=== PATIENT | female | born 1955 | race Caucasian/White ===

== ENCOUNTER 2025-03-27 09:52 | Outpatient (AMB) | payer MEDICARE, OTHER, SELFPAY ==
--- OUTSIDE RECORDS SUMMARY | 2023-10-23 04:00 | XMS_ITS ---
Author Organization [facility] [address] Address [address] [place] [address] Care Team Providers Care Park Keeper Name Role Phone JOSE LAGUNAS Unavailable [phone] Encounters Encounter Location Date Provider Diagnosis [facility] [address] [place] [address] 10/23/2023 JOSE LAGUNAS Plan Of Treatment Next Appt Details Provider Name:JOSE LAGUNAS, 06/25/2025 10:15:00 AM, [address], [place], [address], Progress Notes * ANASTACIOBri FORBESDOB:1955 (70 yo F)Acc No.[id number]:10/23/2023 Progress Notes Patient: Bri Genao Provider: Zoey LAGUNAS PA-C :1955 A ge:68 Y S ex:Female Date:10/23/2023 Address:[address] [id number] Care Plan Details* * Electronic signature of MIRANDA LAGUNAS PA-C on 03/27/2025 at 10:56 AM EST Sign off status: Pending * Provider: Zoey LAGUNAS PA-C Date: 0 10/23/2023 Generated for Kaseyi ng/Faxing/eTransmitting on: 1 05/28/2024 10:56 AM EST
--- OUTSIDE RECORDS SUMMARY | 2024-04-28 04:00 | XMS_ITS ---
Author Organization [facility] [address] Address [address] [place] [address] Care Team Providers Care Mastercam Programmer Name Role Phone JOSE LAGUNAS Unavailable [phone] Encounters Encounter Location Date Provider Diagnosis [facility] [address] [place] [address] 04/28/2024 JOSE LAGUNAS Plan Of Treatment Next Appt Details Provider Name:JOSE LAGUNAS, 06/25/2025 10:15:00 AM, [address], [place], [address], Progress Notes * XUANBri ARMSTRONGDOB:1955 (70 yo F)Acc No.[id number]:04/28/2024 Progress Note Patient: Bri Genao Provider: Zoey LAGUNAS PA-C :1955 A ge:69 Y S ex:Female Date:04/28/2024 Address:[address] [id number] Care Plan Details* * Electronic signature of MIRANDA LAGUNAS PA-C on 03/27/2025 at 10:56 AM EST Sign off status: Pending * Provider: Zoey LAGUNAS PA-C Date: 0 04/28/2024 Generated for Bk ng/Faivang/eTransmitting on: 1 05/28/2024 10:56 AM EST
--- OUTSIDE RECORDS SUMMARY | 2024-12-09 05:00 | XMS_ITS ---
Author Organization [facility] [address] Address [address] [place] [address] Care Team Providers Care Kiln Setter Name Role Phone JOSE LAGUNAS Unavailable [phone] Encounters Encounter Location Date Provider Diagnosis [facility] [place] [address] 12/09/2024 JOSE LAGUNAS Plan Of Treatment Next Appt Details Provider Name:JOSE LAGUNAS, 06/25/2025 10:15:00 AM, [address], [place], [address], Progress Notes * ANASTACIOBri FORBESDOB:1955 (70 yo F)Acc No.[id number]:12/09/2024 Progress Notes Patient: Bri Genao Provider: Zoey LAGUNAS PA-C :1955 A ge:69 Y S ex:Female Date:12/09/2024 Address:[address] [id number] Care Plan Details* * Electronic signature of MIRANDA LAGUNAS PA-C on 03/27/2025 at 10:56 AM EST Sign off status: Pending * Provider: Zoey LAGUNAS PA-C Date: 0 12/09/2024 Generated for Bk ng/Faivang/eTransmitting on: 1 05/28/2024 10:56 AM EST
--- NOTE | 2025-03-27 10:11 | HO.SPINEOV ---
Vital Signs 03/27/25 10:23 Height 5 ft 5 in Weight 139 lb BMI 23.1 Intake Visit Reasons: spinal stenosis Intake Note: Ms. Montiel is here today c/o low back pain with stiffness of the feet. MRI done at [facility]. Public Relations Associate Required: No Allergies No Known Allergies Allergy (Verified 03/27/25 10:24) Physical Exam Vital Signs: BMI result Body Mass Index 23.1 Assessment & Plan Assessment & Plan (1) Tethered cord: Code(s): Q06.8 - Other specified congenital malformations of spinal cord Category: Medical Plan Dear Mitra, Thank you for referring Mrs Montiel to our office today. She is a very nice 70-year-old female who has been sent today for evaluation of tethered cord seen on lumbar MRI. She has a complicated urogynecological history, that started with her 1st child , where she has had issues with urinary incontinence. Ultimately over the years she developed a urinary prolapse which was quite significant. She was having tremendous amounts of pelvic pain and urinary issues. A few times when she was bending forward or exerting herself she had episodes of fecal incontinence. She can recall probably 2 or 3 episodes like this. She does not report any loss of sensation in her perineal area. She underwent a surgery to correct her bladder and the prolapse issues and since that time her urinary incontinence has gotten significantly better if not completely fix, and no more episodes of the stool incontinence. She ultimately underwent a lumbar MRI because of the fecal incontinence and this showed spinal cord conus ending at the L4 level possibly consistent with tethered cord syndrome. She had some other mild degenerative changes seen as well. She was sent today for us for an evaluation. The patient states she does have occasional balance issues when she is doing her exercise classes. No tingling or numbness down the legs or in the saddle region. Again her urine and bowel function is back to normal after the urogynecological surgery. No loss of motor strength in the lower extremities reported. PMH: She is otherwise healthy, no major medical problems Social hx: She has not smoke, drink use any recreational drugs Medications: Takes a regular medication Allergies: None Physical exam: Awake alert oriented able to ambulate down the hallways with no instability, strength normal, reflexes slightly brisk on the left side, might have a beat of clonus in the left foot. Toes are both downgoing. No loss of sensation to light touch. Imaging review: Lumbar MRI done at [facility] shows grade 1 spondylolisthesis at L4-5, she has as outlined by the radiology report, low-lying conus, ending at L4. No cord signal change seen in the spinal cord itself. Nothing compressing the spinal cord. Impression: 70-year-old female with an extensive urogynecological history, previous history of urinary incontinence related to those things, who developed a separate issue of 2 or 3 episodes of fecal incontinence. Since her reconstructive surgery of her pelvis, these issues have gone away but she was found to have a low-lying conus ending at L4 possibly consistent with tethered cord syndrome. I reviewed the case with Dr. Castañeda, at this time we do not believe that the tethered cord was connected to the fecal incontinence or the urinary incontinence since the symptoms have gone away after her middle school librarian surgery, but he would like Dr. Tiara Dubois our former colleague at [facility] to see her for a second opinion. We will arrange this and the patient can follow up with him if any surgical intervention is deemed necessary. Thank you for allowing us to care for your patient. The total time spent with this visit with this patient was 45 minutes reviewing history, physical exam, lumbar imaging review, and implementation of treatment plan or further diagnostic testing Reji Castañeda MD,PhD [facility] Coding Level of Care Code New Pt Level 4 (72443) Diagnoses Tethered cord Q06.8
[2025-03-27 10:23] VITALS: BMI 23.1
--- OUTSIDE RECORDS SUMMARY | 2025-03-27 10:56 | XMS_ITS | Patient Health Record ---
Author Organization [facility] Address [address] [place] [address] Care Team Providers Care Watershed Manager Name Role Phone Shahriar BROWN, Bhavna Primary Care Provider Unavailabl e Black, Ruby Unavailable [phone] Reason For Referral No Information Problems Problem Type SNOMED Code ICD Code Onset Dates Problem Status W/U Status Risk Notes Problem Hallux valgus (433606056) Hallux Valgus (735.0) Active confirmed Problem Hammer toe (834560132) Hammer toe (735.4) Active confirmed Plan Of Treatment Pending Test Test Name Order Date X ray : Foot, left 3V 03/09/2011 Insurance Providers Payer Name Payer Address Payer Phone Subscriber Number Group Number Insured Name Patient Relationship to Insured Coverage Start Date Coverage End Date [facility] [address] [place] [phone] [id number] Bri Flower Self - patient is the insured Medical (General) History Medical History History ICD Code chicken pox measles mumps Surgical History Surgery Date(Month/Year) breast biopsy tonsillectomy tubal ligation
--- OUTSIDE RECORDS SUMMARY | 2025-03-27 10:56 | XMS_ITS | Patient Health Record ---
Author Organization [facility] [address] Address [address] [place] [address] Care Team Providers Care Brickmason Helper Name Role Phone JOSE LAGUNAS Unavailable [phone] Allergies No Known Allergies Results Component Value Reference Range Flag Notes CBC WITH AUTO DIFFERENTIAL Reviewed date:04/28/2024 10:02:38 AM Interpretation: Performing Lab: Notes/Report: WBC 5.0 4.8-10.8 K/mcL RBC 4.70 3.80-4.80 M/mcL Hemoglobin 14.0 11.5-16.0 g/dL Hematocrit 44.1 35.0-47.0 % MCV 93.0 79.0-98.0 FL MCH 29.5 27.0-32.0 pcg MCHC 31.7 32.0-37.0 g/dL L RDW 12.4 11.0-15.0 % Platelets 293 130-400 K/mcL MPV 9.9 7.0-11.0 FL NRBC 0.0 <1.0 % NRBC Absolute 0.00 <0.10 K/mcL Neutrophils Relative 52.2 Lymphocytes Relative 33.4 Monocytes Relative 10.6 Eosinophils Relative 2.8 Basophils Relative 0.8 Immature Granulocytes Relative 0.2 Neutrophils Absolute 2.61 1.50-7.00 K/mcL Lymphocytes Absolute 1.67 1.00-5.00 K/mcL Monocytes Absolute 0.53 0.20-1.00 K/mcL Eosinophils Absolute 0.14 0.00-0.50 K/mcL Basophils Absolute 0.04 0.00-0.20 K/mcL Immature Granulocytes Absolute 0.01 0.00-0.03 K/mcL LIPID PANEL WITH REFLEX TO D IRECT LDL Reviewed date:04/28/2024 10:02:12 AM Interpretation: Performing Lab: Notes/Report: Cholesterol 205 0-200 mg/dL H Triglycerides 78 0-150 mg/dL HDL 62 >=40 mg/dL LDL Calculated 127 0-100 mg/dL H VLDL Cholesterol Dwight 15.6 Non HDL Chol. (LDL+VLDL) 143 <145 mg/dL Chol/HDL Ratio 3.3 0.0-4.4 VITAMIN D 25 HYDROXY Reviewed date:04/28/2024 10:02:38 AM Interpretation: Performing Lab: Notes/Report: Vit D, 25-Hydroxy 62.2 30.0-80.0 ng/mL COMPREHENSIVE METABOLIC PANE L Reviewed date:04/28/2024 10:02:38 AM Interpretation: Performing Lab: Notes/Report: Sodium 139 133-145 mmol/L Potassium 4.2 3.5-5.5 mmol/L Chloride 105 96-110 mmol/L CO2 27 21-32 mmol/L Anion Gap 7 3-11 Glucose 80 70-100 mg/dL BUN 22 5-25 mg/dL Creatinine 0.99 0.50-1.10 mg/dL eGFR 63 >=60 mL/min/1.73m2 Calculation based on the Chronic Kidney Disease Epidemiology Collaboration (CKD-EPI) equation refit without adjustment for race. BUN/Creatinine Ratio 22.2 Calcium 8.9 8.5-10.5 mg/dL AST (SGOT) 20 10-42 unit/L ALT (SGPT) 24 10-60 unit/L Alkaline Phosphatase 70 42-121 unit/L Total Protein 6.9 6.0-8.0 g/dL Albumin 3.9 3.2-5.0 g/dL Total Bilirubin 0.5 0.0-1.4 mg/dL URINALYSIS MICROSCOPIC ONLY Reviewed date:04/28/2024 10:02:38 AM Interpretation: Performing Lab: Notes/Report: RBC, Urine 3.1 0-4 /HPF WBC, Urine 0.2 0-4 /HPF Squamous Epithelial, Urine 7 0-60 /LPF Bacteria, Urine Negative Negative /HPF Hyaline Casts, Urine 0.0 0-3 /LPF THYROID STIMULATING HORMONE WITH REFLEX TO FREE T4 AND FREE T3 Reviewed date:04/28/2024 10:02:38 AM Interpretation: Performing Lab: Notes/Report: TSH 2.52 0.40-4.00 mcIU/mL HEMOGLOBIN A1C Reviewed date:04/28/2024 01:43:28 PM Interpretation: Performing Lab: Notes/Report: Hemoglobin A1C 5.4 <6.5 % Mean Bld Glu Estim. 108 VITAMIN B12 Reviewed date:04/28/2024 10:02:38 AM Interpretation: Performing Lab: Notes/Report: Vitamin B-12 498 250-900 pcg/mL BD BONE DENSITY DXA AXIAL SK LESLIETON Reviewed date:11/17/2024 01:43:56 PM Interpretation: Performing Lab: Notes/Report: Note See Note [facility], a member of [employer] Patient Name: BRI FLOWER Date of : 1955 Reason for Exam: screening for osteoporosis Exam Date: 11/14/2024 [id number] EST Report Status: Final Ordering Provider: JOSE LAGUNAS PCP: MITCHELL ROBERTS BONE DENSITY SCAN (DEXA): FINDINGS: Lumbar Spine T-score is -2.4. (SD relative to 20-29 y/o adult) Z-score is -0.5. (SD relative to age matched peers) This is considered osteopenia by WHO criteria. Left Hip T-score is -2.4. Z-score is -0.7. This is considered osteopenia by WHO criteria. Comparison exam(s): None. IMPRESSION: Osteopenia by WHO criteria. This patient has a 20% risk of major osteoporotic fracture and a 4.3% risk of hip fracture over the next 10 years. (World Health Organization Fracture Risk Assessment) [facility] Department of Internal Medicine recommends using National Osteoporosis Foundation (NOF) guidelines in treatment decisions related to osteoporosis. NOF guidelines suggest considering treatment for postmenopausal women and men aged 50 or older presenting with the following: History of hip or vertebral fracture. T-score = -2.5 (DXA) at the femoral neck, total hip, or spine, after appropriate evaluation to exclude secondary causes. Low bone mass (T-sco re between -1.0 and -2.5 at the femoral neck or spine) AND a 10-year probability of a hip fracture = 3% OR a 10-year probability of a major osteoporosis-related fracture = 20% based on the [place]-adapted WHO algorithm Please note that all treatment decisions require clinical judgment and consideration of individual patient factors, including patient preferences, co-morbidities, previous drug use, risk factors not captured in the FRAX model (e.g., frailty, falls, vitamin D deficiency, increased bone turnover, interval significant decline in bone density) and possible under- or over-estimation of fracture risk by FRAX. Optional alternative screening schedule based on tejas Henderson., [facility] April 27, 2011 for patients with osteopenia (based on hip BMD T-score) is as follows: * advanced osteopeni a (T scores -2.00 to -2.49), BMD testing every year * moderate osteopeni a (T scores -1.50 to -1.99), BMD testing every 5 years mild osteopenia or normal BMD (T scores -1.50 and higher), BMD testing every 15 years -------- FINAL REPOR T -------- Dictated By: Aleta Kwan Dictated Date: 11/17/2024 09:55 ET Assigned Physician: Aleta Kwan Reviewed and Electronically Signed By: Aleta Kwan Signed Date: 025 09:56 ET Workstation ID: [id number] Transcribed By: Self Edit Transcribed Date: 11/17/2024 09:55 ET MR LUMBAR SPINE WO CONTRAST Reviewed date:2025 01:29:08 PM Interpretation: Performing Lab: Notes/Report: Note See Note [facility], a member of [employer] Patient Name: BRI FLOWER Date of : 1955 Reason for Exam: incontinece Exam Date: 02/10/2025 [id number] EST Report Status: Final Ordering Provider: JOSE LAGUNAS PCP: MITCHELL ROBERTS INDICATION: Stool incontinence COMPARISON: None TECHNIQUE: Multiplan ar, multisequence MRI was performed of the lumbar spine without IV contrast. FINDINGS: Study assumes 5 lumb ar type vertebral bodies. Stepwise grade 1 anterolisthesis of L3 on L4 and L4 on L5. Conus terminates at L4. Bone marrow and cord signal is unremarkable. Disc desiccation at L3-L4 and L4-L5. Small multilevel anterior marginal osteophytes. The spinal canal is widened and patulous in appearance which may represent dural ectasia. Specific findings are seen at the following levels: T12-L1:No significan t spinal canal stenosis or neural foraminal narrowing L1-L2:No significant spinal canal stenosis or neural foraminal narrowing L2-L3:Mild disc bulg e with facet arthropathy without significant spinal canal stenosis or neural foraminal narrowing L3-L4:Uncovering of the disc with ligamentum flavum infolding and facet arthropathy which effaces the ventral thecal sac and results in mild spinal canal stenosis. No neural foraminal narrowing. L4-L5:Uncovering of the disc with ligamentum flavum infolding and facet arthropathy with fluid in both facet joints which results in moderate spinal canal stenosis and mild bilateral neural foraminal narrowing L5-S1:No significant spinal canal stenosis or neural foraminal narrowing. Facet arthropathy. Miscellaneous: Visualized SI joints, paraspinal muscles and retroperitoneum are unremarkable. IMPRESSION: Constellation of findings suspicious for tethered cord syndrome -------- FINAL REPOR T -------- Dictated By: Kavitha Romero Dictated Date: 2025 03:11 ET Assigned Physician: Kavitha Romero Reviewed and Electronically Signed By: Kavitha Romero Signed Date: 025 10:05 ET Workstation ID: [id number] Transcribed By: Self Edit Transcribed Date: 2025 03:19 ET Reason For Referral Reason Evaluate & Treat Diagnosis 1 Hip pain (M25.559) Diagnosis 2 Trochanteric bursiti s, unspecified hip (M70.60) Referral Organization [facility] Referring Provider First Name JOSE Referring Provider Last Name BEBO Referring Provider Speciality Internal edicine Referred Provider Specialty Orthopedic S urgery General Notes Yeimy Morris 0 01/01/2025 12:51:27 PM > Referral to [facility] and carmela strong , f. [phone] Referral Priority Routine Reason evaluate and treat, tethered cord syndrome Diagnosis 1 Other specified dise ases of spinal cord (G95.89) Referral Organization [facility] Referring Provider First Name JOSE Referring Provider Last Name BEBO Referring Provider Speciality Internal edicine Referred Provider Specialty Neurological Surgery Clinical Notes Rosalva Maciel 01:34:13 PM > referral sent to Dr. Irizarry, p)[phone], f)[phone] Danasia 02/20/2025 01:48:20 PM EST > pt called and lvm requesting referral be sent to Dr. Castañeda in [place].Diane Victoria 02/23/2025 01:58:19 PM EST > faxed referral and attachments to Dr. Castañeda [facility] neuro, p: [phone], f: [phone], Craig Bee 03/10/2025 01:34:24 PM EST > resent twice today, Craig Bee 03/19/2025 10:53:29 AM EST > Pt called in and gave me different fax [phone]. Refaxed twice Referral Priority Routine Medications Medication SIG (Take, Route, Frequency, Duration) Notes Start Date End Date Status Calcium + D 500-1000-40 MG-UNT-MCG Tablet Chewable as directed Orally Active Immunizations Vaccine Route Administration Date Status Comme nts COVID 19 VACCINE Unknown 01/25/2024 Administered Social History Tobacco Use: Social History Observation Description Date Details (start date - stop date) Never Smoker NA - NA Social History Tobacco Use: Social Info Question Answer Notes Tobacco Use/Smoking Are you a nonsmoker Section Notes: current smoker 1 pack a day for 20 years hx of 1 pack a day for 20 ye ars hx of 1 pack a day for 20 ye ars Tob: 1 PPD x 20 year ETOH: No social hx of 1 pack a day for 20 years Tob: 1 PPD x 20 year ETOH: No social hx of 1 pack a day for 20 years Tob: 1 PPD x 20 year ETOH: No social hx of 1 pack a day for 20 years hx of 1 pack a day for 20 ye ars Tob: 1 PPD x 20 year ETOH: No social hx of 1 pack a day for 20 years Tob: 1 PPD x 20 year ETOH: No social hx of 1 pack a day for 20 years current smoker 1 pack a day for 20 years Problems Problem Type SNOMED Code ICD Code Onset Dates Problem Status W/U Status Risk Notes Problem Vitamin B>12< deficiency anaemia (53185187) Vitamin B12 deficiency anemia, unspecified (D51.9) Active confirmed Problem Vitamin D deficiency (64285689) Vitamin D deficiency, unspecified (E55.9) Active confirmed Problem Hyperlipidemia (25593957) Hyperlipidemia, unspecified (E78.5) Active confirmed Problem Spinal cord disorder (49757504) Other specified diseases of spinal cord (G95.89) Active confirmed Problem Spinal cord disorder (16965772) Disease of spinal cord, unspecified (G95.9) Active confirmed Problem Chronic kidney disease stage 2 (059439845) Chronic kidney disease, stage 2 (mild) (N18.2) Active confirmed Problem Cystocele (672984354) Cystocele, unspecified (N81.10) Active confirmed Problem Midline cystocele (557932466) Cystocele, midline (N81.11) Active confirmed Problem Adult health examination (452240991) Encounter for general adult medical examination without abnormal findings (Z00.00) Active confirmed Problem Colon cancer screening (227227487) Colon cancer screening (Z12.11) Active confirmed Problem Hyperlipidaemia (41766705) Hyperlipidemia, unspecified hyperlipidemia type (E78.5) Active confirmed Problem Acquired hypothyroidism (962809962) Acquired hypothyroidism (E03.9) Active confirmed Problem Hypothyroidism (69820457) Hypothyroidism, unspecified type (E03.9) Active confirmed Problem Arthritis (0115536) Arthritis (M19.90) Active confirmed Problem Vitamin D deficiency (34276060) Vitamin D deficiency (E55.9) Active confirmed Problem Type II diabetes mellitus without complication (764616987) Type 2 diabetes mellitus without complication, unspecified whether auto painter helper insulin use (E11.9) Active confirmed Problem Incontinence (12267673) Incontinence in female (R32) Active confirmed Problem Incontinence of feces (34624135) Incontinence of feces, unspecified fecal incontinence type (R15.9) Active confirmed Problem Midline cystocele (345568878) Female bladder prolapse (N81.10) Active confirmed Vital Signs Heart Rate 74 /min 03/03/2025 Oximetry 98 % 03/03/2025 Blood pressure diastolic 70 mm Hg 03/03/2025 Height 65 in 03/03/2025 Blood pressure systolic 120 mm Hg 03/03/2025 Weight 143.2 lbs 03/03/2025 BMI 23.83 kg/m2 03/03/2025 Encounters Encounter Location Date Provider Diagnosis [facility] [address] [place] [address] 06/10/2024 JOSE LAGUNAS Hyperlipidemia, unspecified E78.5 ; Medicare annual wellness visit, subsequent Z00.00 ; Vitamin D deficiency E55.9 ; Arthritis M19.90 ; Osteopenia of lumbar spine M85.88 ; Depression screen Z13.31 ; Encounter for screening for other disorder Z13.89 ; Cystocele, midline N81.11 and Advance care planning Z71.89 [facility] [address] [place] [address] 01/01/2025 JOSE BEBO Hyperlipidemia, unspecified E78.5 ; Incontinence of feces, unspecified fecal incontinence type R15.9 ; Osteopenia of lumbar spine M85.88 ; Cystocele, midline N81.11 and Encounter for examination of blood pressure without abnormal findings Z01.30 [facility] [address] [place] [address] 03/03/2025 JOSE LAGUNAS Hyperlipidemia, unspecified E78.5 ; Disease of spinal cord, unspecified G95.9 ; Osteopenia of lumbar spine M85.88 ; Cystocele, midline N81.11 and Encounter for examination of blood pressure without abnormal findings Z01.[address] [address] 11/05/2024 JOSE LAGUNAS Screening for osteoporosis Z13.[address] [facility] [address] [address] 11/26/2024 JOSE BEBO [facility] [address] 2025 JOSE LAGUNAS Assessments Encounter Date Diagnosis (ICD Code) Assessment Notes Treatment Notes Treatment Clinical Notes Section Notes 06/10/2024 Hyperlipidemia, unspecified (ICD-10 - E78.5) Bri is a 69 year old female patient with a past medical history of osteopenia and vitamin D deficiency presenting for a Medicare wellness visit. # Hyperlipidemia: Lipid panel reveals mild hyperlipidemia with LDL 127, down from 142. She continues to focus on nutrition and regular exercise. Encouraged fish oil supplementation. # Arthritis, Osteopenia, and Vitamin D deficiency: DEXA scan from 07/2022 does show osteopenia. She has begun taking calcium and vitamin D supplementation which will be continued. Vitamin D level is 43 today. She does have arthritis which mainly affects her MCP and knee joints bilaterally. Encouraged Ibuprofen use PRN for flare ups, discussed the significance of not using these daily but only for flare ups. Patient is in agreement and is also working on supportive measures including ice and stretching. # L hip pain. Suspect tronchanteric bursiti. Meloxicam 7.5 mg po daily x 1 month. Consider refer to ortho for possible corticosteroid injection. # Cystocele: Followed by Urology. Consider referral to Pelvic PT. # Screening: UTD. June 2023 Colonoscopy # Vaccines: Given Rx for RSV/Pnuemonia vaccines. All other vaccines UTD Patient seen and examined. Comprehensive discussion was done on the following. 1. Nutrition: It is important to follow a healthy diet based on lots of vegetables and legumes and good fat. Avoid processed food and processed carbohydrates. Learn to prepare your own meals. Learn to read labels and avoid high fructose corn syrup, processed chemicals added to increase shelf life and preprepared meals. Avoid fast foods. Learn to eat slowly and plan meals for a week. Try to count calories and be mindful off daily calorie intake. Get into the habit of keeping an eye on your weight by using an appropriate scale. Learn to log exercise and discussed fitness Apps like Lumenz which can help keep log off calories taken versus calories burned. Local food should be preferred. Discussed Dirty Dozen Versus Clean Fifteen. Discussed healthy supplements like fish oil, Tumeric, Curcumin, Melatonin, Resveratrol, Probiotics, Vitamin-D, Alpha-Lipoic acid, Vitamin-D and coconut oil. 2. It is important to exercise regularly. Is a good habit to walk at least 30-45 minutes a day. Gentle weightlifting with standard precautions to protect the back. Finding activity like cycling or hiking and get into the habit of engaging in it. Stretching before and after the exercises important. It is also important to contact me if there are any problems like shortness of breath, chest pain, back pain and joint or muscle pain associated with the exercise. 3. Discussed age appropriate screening guidelines. Colonoscopy needs to start at age 50 with stool for occult blood as appropriate. There is a new test that can test for genetic abnormalities in the stool sample. This would not replace a colonoscopy but could be used as a screening tool for patients who do not want a colonoscopy. We discussed the importance of early detection of colon cancer. 4. Discussed current guidelines with respect to breast examination, mammogram and pap smear for early detection of breast and cervical cancer. Patient advised to follow up with these appointments. 5. Discussed safe driving and no use of smart phone while driving 6. Age-appropriate immunizations were discussed. A tetanus booster is needed every 10 years. Flu vaccine is recommended every year just before the start of the flu season. Shingles vaccine is recommended after age 50 but not all insurances cover it.Pneumonia vaccine is given after age 65 unless there are certain comorbidities for which it is started earlier. 7. Diagnostic labs were discussed. These could include CBC CMP and lipids with fasting blood glucose and insulin levels. Vitamin D and hemoglobin A1c testing might be appropriate. Follow up appointment in 6 months. WIll re-check lipid panel to trend values. Patient advised to call the office sooner if any questions arise. 06/10/2024 Medicare annual wellness visit, subsequent (ICD-10 - Z00.00) Bri is a 69 year old female patient with a past medical history of osteopenia and vitamin D deficiency presenting for a Medicare wellness visit. # Hyperlipidemia: Lipid panel reveals mild hyperlipidemia with LDL 127, down from 142. She continues to focus on nutrition and regular exercise. Encouraged fish oil supplementation. # Arthritis, Osteopenia, and Vitamin D deficiency: DEXA scan from 07/2022 does show osteopenia. She has begun taking calcium and vitamin D supplementation which will be continued. Vitamin D level is 43 today. She does have arthritis which mainly affects her MCP and knee joints bilaterally. Encouraged Ibuprofen use PRN for flare ups, discussed the significance of not using these daily but only for flare ups. Patient is in agreement and is also working on supportive measures including ice and stretching. # L hip pain. Suspect tronchanteric bursiti. Meloxicam 7.5 mg po daily x 1 month. Consider refer to ortho for possible corticosteroid injection. # Cystocele: Followed by Urology. Consider referral to Pelvic PT. # Screening: UTD. June 2023 Colonoscopy # Vaccines: Given Rx for RSV/Pnuemonia vaccines. All other vaccines UTD Patient seen and examined. Comprehensive discussion was done on the following. 1. Nutrition: It is important to follow a healthy diet based on lots of vegetables and legumes and good fat. Avoid processed food and processed carbohydrates. Learn to prepare your own meals. Learn to read labels and avoid high fructose corn syrup, processed chemicals added to increase shelf life and preprepared meals. Avoid fast foods. Learn to eat slowly and plan meals for a week. Try to count calories and be mindful off daily calorie intake. Get into the habit of keeping an eye on your weight by using an appropriate scale. Learn to log exercise and discussed fitness Apps like Lumenz which can help keep log off calories taken versus calories burned. Local food should be preferred. Discussed Dirty Dozen Versus Clean Fifteen. Discussed healthy supplements like fish oil, Tumeric, Curcumin, Melatonin, Resveratrol, Probiotics, Vitamin-D, Alpha-Lipoic acid, Vitamin-D and coconut oil. 2. It is important to exercise regularly. Is a good habit to walk at least 30-45 minutes a day. Gentle weightlifting with standard precautions to protect the back. Finding activity like cycling or hiking and get into the habit of engaging in it. Stretching before and after the exercises important. It is also important to contact me if there are any problems like shortness of breath, chest pain, back pain and joint or muscle pain associated with the exercise. 3. Discussed age appropriate screening guidelines. Colonoscopy needs to start at age 50 with stool for occult blood as appropriate. There is a new test that can test for genetic abnormalities in the stool sample. This would not replace a colonoscopy but could be used as a screening tool for patients who do not want a colonoscopy. We discussed the importance of early detection of colon cancer. 4. Discussed current guidelines with respect to breast examination, mammogram and pap smear for early detection of breast and cervical cancer. Patient advised to follow up with these appointments. 5. Discussed safe driving and no use of smart phone while driving 6. Age-appropriate immunizations were discussed. A tetanus booster is needed every 10 years. Flu vaccine is recommended every year just before the start of the flu season. Shingles vaccine is recommended after age 50 but not all insurances cover it.Pneumonia vaccine is given after age 65 unless there are certain comorbidities for which it is started earlier. 7. Diagnostic labs were discussed. These could include CBC CMP and lipids with fasting blood glucose and insulin levels. Vitamin D and hemoglobin A1c testing might be appropriate. Follow up appointment in 6 months. WIll re-check lipid panel to trend values. Patient advised to call the office sooner if any questions arise. 11/05/2024 Screening for osteoporosis (ICD-10 - Z13.820) 01/01/2025 Hyperlipidemia, unspecified (ICD-10 - E78.5) Bri is a 69 year old female patient with a past medical history of osteopenia and vitamin D deficiency p # STool incontinence. Not all the time... MRI of lumbar spine w/o contrast. # Hyperlipidemia: Lipid panel reveals mild hyperlipidemia with LDL 127, down from 142. She continues to focus on nutrition and regular exercise. Encouraged fish oil supplementation. # Arthritis, Osteopenia, and Vitamin D deficiency: DEXA scan from 07/2022 does show osteopenia. She has begun taking calcium and vitamin D supplementation which will be continued. Vitamin D level is 43 today. She does have arthritis which mainly affects her MCP and knee joints bilaterally. Encouraged Ibuprofen use PRN for flare ups, discussed the significance of not using these daily but only for flare ups. Patient is in agreement and is also working on supportive measures including ice and stretching. # L hip pain. Suspect tronchanteric bursiti. Meloxicam 7.5 mg po daily x 1 month with no improvement. Refer to ortho # Cystocele: Undergoing urogynecology [facility] with cystocele repair Feb 2025 # Screening: UTD. June 2023 Colonoscopy Case discussed with collaborating physician Lucy Roberts who reviewed the assessment and plan. Chart, medications, labs, vital signs reviewed. Dictation was accomplished with the use of [employer] voice recognition software, prone to medical misidentifications and grammatical errors. This is unintentional and the practitioner does try to identify and correct these, but some could still be present. Please do not hesitate to contact practitioner for clarification. All questions answered to patients satisfaction. Patient verbalized understanding of diagnosis and treatments explained. To call sooner prior to next visit it any questions/concerns arise. 03/03/2025 Hyperlipidemia, unspecified (ICD-10 - E78.5) Bri is a 69 year old female patient with a past medical history of osteopenia and vitamin D deficiency p # Tethered lumbar cord syndrome. This was noted on MRI done in January 2025. Patient has referral placed to neurosurgery # Hyperlipidemia: Lipid panel reveals mild hyperlipidemia with LDL 127, down from 142. She continues to focus on nutrition and regular exercise. Encouraged fish oil supplementation. # Arthritis, Osteopenia, and Vitamin D deficiency: DEXA scan from 07/2022 does show osteopenia. She has begun taking calcium and vitamin D supplementation which will be continued. Vitamin D level is 43 today. She does have arthritis which mainly affects her MCP and knee joints bilaterally. Encouraged Ibuprofen use PRN for flare ups, discussed the significance of not using these daily but only for flare ups. Patient is in agreement and is also working on supportive measures including ice and stretching. # Cystocele: Undergoing urogynecology [facility] with cystocele repair Feb 2025, 2 weeks postop with good healing. # Screening: UTD. June 2023 Colonoscopy Case discussed with collaborating physician Lucy Roberts who reviewed the assessment and plan. Chart, medications, labs, vital signs reviewed. Dictation was accomplished with the use of [employer] voice recognition software, prone to medical misidentifications and grammatical errors. This is unintentional and the practitioner does try to identify and correct these, but some could still be present. Please do not hesitate to contact practitioner for clarification. All questions answered to patients satisfaction. Patient verbalized understanding of diagnosis and treatments explained. To call sooner prior to next visit it any questions/concerns arise. 03/03/2025 Disease of spinal cord, unspecified (ICD-10 - G95.9) Bri is a 69 year old female patient with a past medical history of osteopenia and vitamin D deficiency p # Tethered lumbar cord syndrome. This was noted on MRI done in January 2025. Patient has referral placed to neurosurgery # Hyperlipidemia: Lipid panel reveals mild hyperlipidemia with LDL 127, down from 142. She continues to focus on nutrition and regular exercise. Encouraged fish oil supplementation. # Arthritis, Osteopenia, and Vitamin D deficiency: DEXA scan from 07/2022 does show osteopenia. She has begun taking calcium and vitamin D supplementation which will be continued. Vitamin D level is 43 today. She does have arthritis which mainly affects her MCP and knee joints bilaterally. Encouraged Ibuprofen use PRN for flare ups, discussed the significance of not using these daily but only for flare ups. Patient is in agreement and is also working on supportive measures including ice and stretching. # Cystocele: Undergoing urogynecology [facility] with cystocele repair Feb 2025, 2 weeks postop with good healing. # Screening: UTD. June 2023 Colonoscopy Case discussed with collaborating physician Lucy Roberts who reviewed the assessment and plan. Chart, medications, labs, vital signs reviewed. Dictation was accomplished with the use of [employer] voice recognition software, prone to medical misidentifications and grammatical errors. This is unintentional and the practitioner does try to identify and correct these, but some could still be present. Please do not hesitate to contact practitioner for clarification. All questions answered to patients satisfaction. Patient verbalized understanding of diagnosis and treatments explained. To call sooner prior to next visit it any questions/concerns arise. 01/01/2025 Incontinence of feces, unspecified fecal incontinence type (ICD-10 - R15.9) Bri is a 69 year old female patient with a past medical history of osteopenia and vitamin D deficiency p # STool incontinence. Not all the time... MRI of lumbar spine w/o contrast. # Hyperlipidemia: Lipid panel reveals mild hyperlipidemia with LDL 127, down from 142. She continues to focus on nutrition and regular exercise. Encouraged fish oil supplementation. # Arthritis, Osteopenia, and Vitamin D deficiency: DEXA scan from 07/2022 does show osteopenia. She has begun taking calcium and vitamin D supplementation which will be continued. Vitamin D level is 43 today. She does have arthritis which mainly affects her MCP and knee joints bilaterally. Encouraged Ibuprofen use PRN for flare ups, discussed the significance of not using these daily but only for flare ups. Patient is in agreement and is also working on supportive measures including ice and stretching. # L hip pain. Suspect tronchanteric bursiti. Meloxicam 7.5 mg po daily x 1 month with no improvement. Refer to ortho # Cystocele: Undergoing urogynecology [facility] with cystocele repair Feb 2025 # Screening: UTD. June 2023 Colonoscopy Case discussed with collaborating physician Lucy Roberts who reviewed the assessment and plan. Chart, medications, labs, vital signs reviewed. Dictation was accomplished with the use of [employer] voice recognition software, prone to medical misidentifications and grammatical errors. This is unintentional and the practitioner does try to identify and correct these, but some could still be present. Please do not hesitate to contact practitioner for clarification. All questions answered to patients satisfaction. Patient verbalized understanding of diagnosis and treatments explained. To call sooner prior to next visit it any questions/concerns arise. 01/01/2025 Osteopenia of lumbar spine (ICD-10 - M85.88) Bri is a 69 year old female patient with a past medical history of osteopenia and vitamin D deficiency p # STool incontinence. Not all the time... MRI of lumbar spine w/o contrast. # Hyperlipidemia: Lipid panel reveals mild hyperlipidemia with LDL 127, down from 142. She continues to focus on nutrition and regular exercise. Encouraged fish oil supplementation. # Arthritis, Osteopenia, and Vitamin D deficiency: DEXA scan from 07/2022 does show osteopenia. She has begun taking calcium and vitamin D supplementation which will be continued. Vitamin D level is 43 today. She does have arthritis which mainly affects her MCP and knee joints bilaterally. Encouraged Ibuprofen use PRN for flare ups, discussed the significance of not using these daily but only for flare ups. Patient is in agreement and is also working on supportive measures including ice and stretching. # L hip pain. Suspect tronchanteric bursiti. Meloxicam 7.5 mg po daily x 1 month with no improvement. Refer to ortho # Cystocele: Undergoing urogynecology [facility] with cystocele repair Feb 2025 # Screening: UTD. June 2023 Colonoscopy Case discussed with collaborating physician Lucy Roberts who reviewed the assessment and plan. Chart, medications, labs, vital signs reviewed. Dictation was accomplished with the use of [employer] voice recognition software, prone to medical misidentifications and grammatical errors. This is unintentional and the practitioner does try to identify and correct these, but some could still be present. Please do not hesitate to contact practitioner for clarification. All questions answered to patients satisfaction. Patient verbalized understanding of diagnosis and treatments explained. To call sooner prior to next visit it any questions/concerns arise. 03/03/2025 Osteopenia of lumbar spine (ICD-10 - M85.88) Bri is a 69 year old female patient with a past medical history of osteopenia and vitamin D deficiency p # Tethered lumbar cord syndrome. This was noted on MRI done in January 2025. Patient has referral placed to neurosurgery # Hyperlipidemia: Lipid panel reveals mild hyperlipidemia with LDL 127, down from 142. She continues to focus on nutrition and regular exercise. Encouraged fish oil supplementation. # Arthritis, Osteopenia, and Vitamin D deficiency: DEXA scan from 07/2022 does show osteopenia. She has begun taking calcium and vitamin D supplementation which will be continued. Vitamin D level is 43 today. She does have arthritis which mainly affects her MCP and knee joints bilaterally. Encouraged Ibuprofen use PRN for flare ups, discussed the significance of not using these daily but only for flare ups. Patient is in agreement and is also working on supportive measures including ice and stretching. # Cystocele: Undergoing urogynecology [facility] with cystocele repair Feb 2025, 2 weeks postop with good healing. # Screening: UTD. June 2023 Colonoscopy Case discussed with collaborating physician Lucy Roberts who reviewed the assessment and plan. Chart, medications, labs, vital signs reviewed. Dictation was accomplished with the use of [employer] voice recognition software, prone to medical misidentifications and grammatical errors. This is unintentional and the practitioner does try to identify and correct these, but some could still be present. Please do not hesitate to contact practitioner for clarification. All questions answered to patients satisfaction. Patient verbalized understanding of diagnosis and treatments explained. To call sooner prior to next visit it any questions/concerns arise. 06/10/2024 Vitamin D deficiency (ICD-10 - E55.9) Bri is a 69 year old female patient with a past medical history of osteopenia and vitamin D deficiency presenting for a Medicare wellness visit. # Hyperlipidemia: Lipid panel reveals mild hyperlipidemia with LDL 127, down from 142. She continues to focus on nutrition and regular exercise. Encouraged fish oil supplementation. # Arthritis, Osteopenia, and Vitamin D deficiency: DEXA scan from 07/2022 does show osteopenia. She has begun taking calcium and vitamin D supplementation which will be continued. Vitamin D level is 43 today. She does have arthritis which mainly affects her MCP and knee joints bilaterally. Encouraged Ibuprofen use PRN for flare ups, discussed the significance of not using these daily but only for flare ups. Patient is in agreement and is also working on supportive measures including ice and stretching. # L hip pain. Suspect tronchanteric bursiti. Meloxicam 7.5 mg po daily x 1 month. Consider refer to ortho for possible corticosteroid injection. # Cystocele: Followed by Urology. Consider referral to Pelvic PT. # Screening: UTD. June 2023 Colonoscopy # Vaccines: Given Rx for RSV/Pnuemonia vaccines. All other vaccines UTD Patient seen and examined. Comprehensive discussion was done on the following. 1. Nutrition: It is important to follow a healthy diet based on lots of vegetables and legumes and good fat. Avoid processed food and processed carbohydrates. Learn to prepare your own meals. Learn to read labels and avoid high fructose corn syrup, processed chemicals added to increase shelf life and preprepared meals. Avoid fast foods. Learn to eat slowly and plan meals for a week. Try to count calories and be mindful off daily calorie intake. Get into the habit of keeping an eye on your weight by using an appropriate scale. Learn to log exercise and discussed fitness Apps like [employer] which can help keep log off calories taken versus calories burned. Local food should be preferred. Discussed Dirty Dozen Versus Clean Fifteen. Discussed healthy supplements like fish oil, Tumeric, Curcumin, Melatonin, Resveratrol, Probiotics, Vitamin-D, Alpha-Lipoic acid, Vitamin-D and coconut oil. 2. It is important to exercise regularly. Is a good habit to walk at least 30-45 minutes a day. Gentle weightlifting with standard precautions to protect the back. Finding activity like cycling or hiking and get into the habit of engaging in it. Stretching before and after the exercises important. It is also important to contact me if there are any problems like shortness of breath, chest pain, back pain and joint or muscle pain associated with the exercise. 3. Discussed age appropriate screening guidelines. Colonoscopy needs to start at age 50 with stool for occult blood as appropriate. There is a new test that can test for genetic abnormalities in the stool sample. This would not replace a colonoscopy but could be used as a screening tool for patients who do not want a colonoscopy. We discussed the importance of early detection of colon cancer. 4. Discussed current guidelines with respect to breast examination, mammogram and pap smear for early detection of breast and cervical cancer. Patient advised to follow up with these appointments. 5. Discussed safe driving and no use of smart phone while driving 6. Age-appropriate immunizations were discussed. A tetanus booster is needed every 10 years. Flu vaccine is recommended every year just before the start of the flu season. Shingles vaccine is recommended after age 50 but not all insurances cover it.Pneumonia vaccine is given after age 65 unless there are certain comorbidities for which it is started earlier. 7. Diagnostic labs were discussed. These could include CBC CMP and lipids with fasting blood glucose and insulin levels. Vitamin D and hemoglobin A1c testing might be appropriate. Follow up appointment in 6 months. WIll re-check lipid panel to trend values. Patient advised to call the office sooner if any questions arise. 06/10/2024 Arthritis (ICD-10 - M19.90) Bri is a 69 year old female patient with a past medical history of osteopenia and vitamin D deficiency presenting for a Medicare wellness visit. # Hyperlipidemia: Lipid panel reveals mild hyperlipidemia with LDL 127, down from 142. She continues to focus on nutrition and regular exercise. Encouraged fish oil supplementation. # Arthritis, Osteopenia, and Vitamin D deficiency: DEXA scan from 07/2022 does show osteopenia. She has begun taking calcium and vitamin D supplementation which will be continued. Vitamin D level is 43 today. She does have arthritis which mainly affects her MCP and knee joints bilaterally. Encouraged Ibuprofen use PRN for flare ups, discussed the significance of not using these daily but only for flare ups. Patient is in agreement and is also working on supportive measures including ice and stretching. # L hip pain. Suspect tronchanteric bursiti. Meloxicam 7.5 mg po daily x 1 month. Consider refer to ortho for possible corticosteroid injection. # Cystocele: Followed by Urology. Consider referral to Pelvic PT. # Screening: UTD. June 2023 Colonoscopy # Vaccines: Given Rx for RSV/Pnuemonia vaccines. All other vaccines UTD Patient seen and examined. Comprehensive discussion was done on the following. 1. Nutrition: It is important to follow a healthy diet based on lots of vegetables and legumes and good fat. Avoid processed food and processed carbohydrates. Learn to prepare your own meals. Learn to read labels and avoid high fructose corn syrup, processed chemicals added to increase shelf life and preprepared meals. Avoid fast foods. Learn to eat slowly and plan meals for a week. Try to count calories and be mindful off daily calorie intake. Get into the habit of keeping an eye on your weight by using an appropriate scale. Learn to log exercise and discussed fitness Apps like [employer] which can help keep log off calories taken versus calories burned. Local food should be preferred. Discussed Dirty Dozen Versus Clean Fifteen. Discussed healthy supplements like fish oil, Tumeric, Curcumin, Melatonin, Resveratrol, Probiotics, Vitamin-D, Alpha-Lipoic acid, Vitamin-D and coconut oil. 2. It is important to exercise regularly. Is a good habit to walk at least 30-45 minutes a day. Gentle weightlifting with standard precautions to protect the back. Finding activity like cycling or hiking and get into the habit of engaging in it. Stretching before and after the exercises important. It is also important to contact me if there are any problems like shortness of breath, chest pain, back pain and joint or muscle pain associated with the exercise. 3. Discussed age appropriate screening guidelines. Colonoscopy needs to start at age 50 with stool for occult blood as appropriate. There is a new test that can test for genetic abnormalities in the stool sample. This would not replace a colonoscopy but could be used as a screening tool for patients who do not want a colonoscopy. We discussed the importance of early detection of colon cancer. 4. Discussed current guidelines with respect to breast examination, mammogram and pap smear for early detection of breast and cervical cancer. Patient advised to follow up with these appointments. 5. Discussed safe driving and no use of smart phone while driving 6. Age-appropriate immunizations were discussed. A tetanus booster is needed every 10 years. Flu vaccine is recommended every year just before the start of the flu season. Shingles vaccine is recommended after age 50 but not all insurances cover it.Pneumonia vaccine is given after age 65 unless there are certain comorbidities for which it is started earlier. 7. Diagnostic labs were discussed. These could include CBC CMP and lipids with fasting blood glucose and insulin levels. Vitamin D and hemoglobin A1c testing might be appropriate. Follow up appointment in 6 months. WIll re-check lipid panel to trend values. Patient advised to call the office sooner if any questions arise. 03/03/2025 Cystocele, midline (ICD-10 - N81.11) Bri is a 69 year old female patient with a past medical history of osteopenia and vitamin D deficiency p # Tethered lumbar cord syndrome. This was noted on MRI done in January 2025. Patient has referral placed to neurosurgery # Hyperlipidemia: Lipid panel reveals mild hyperlipidemia with LDL 127, down from 142. She continues to focus on nutrition and regular exercise. Encouraged fish oil supplementation. # Arthritis, Osteopenia, and Vitamin D deficiency: DEXA scan from 07/2022 does show osteopenia. She has begun taking calcium and vitamin D supplementation which will be continued. Vitamin D level is 43 today. She does have arthritis which mainly affects her MCP and knee joints bilaterally. Encouraged Ibuprofen use PRN for flare ups, discussed the significance of not using these daily but only for flare ups. Patient is in agreement and is also working on supportive measures including ice and stretching. # Cystocele: Undergoing urogynecology [facility] with cystocele repair Feb 2025, 2 weeks postop with good healing. # Screening: UTD. June 2023 Colonoscopy Case discussed with collaborating physician Lucy Roberts who reviewed the assessment and plan. Chart, medications, labs, vital signs reviewed. Dictation was accomplished with the use of [employer] voice recognition software, prone to medical misidentifications and grammatical errors. This is unintentional and the practitioner does try to identify and correct these, but some could still be present. Please do not hesitate to contact practitioner for clarification. All questions answered to patients satisfaction. Patient verbalized understanding of diagnosis and treatments explained. To call sooner prior to next visit it any questions/concerns arise. 01/01/2025 Cystocele, midline (ICD-10 - N81.11) Bri is a 69 year old female patient with a past medical history of osteopenia and vitamin D deficiency p # STool incontinence. Not all the time... MRI of lumbar spine w/o contrast. # Hyperlipidemia: Lipid panel reveals mild hyperlipidemia with LDL 127, down from 142. She continues to focus on nutrition and regular exercise. Encouraged fish oil supplementation. # Arthritis, Osteopenia, and Vitamin D deficiency: DEXA scan from 07/2022 does show osteopenia. She has begun taking calcium and vitamin D supplementation which will be continued. Vitamin D level is 43 today. She does have arthritis which mainly affects her MCP and knee joints bilaterally. Encouraged Ibuprofen use PRN for flare ups, discussed the significance of not using these daily but only for flare ups. Patient is in agreement and is also working on supportive measures including ice and stretching. # L hip pain. Suspect tronchanteric bursiti. Meloxicam 7.5 mg po daily x 1 month with no improvement. Refer to ortho # Cystocele: Undergoing urogynecology [facility] with cystocele repair Feb 2025 # Screening: UTD. June 2023 Colonoscopy Case discussed with collaborating physician Lucy Roberts who reviewed the assessment and plan. Chart, medications, labs, vital signs reviewed. Dictation was accomplished with the use of [employer] voice recognition software, prone to medical misidentifications and grammatical errors. This is unintentional and the practitioner does try to identify and correct these, but some could still be present. Please do not hesitate to contact practitioner for clarification. All questions answered to patients satisfaction. Patient verbalized understanding of diagnosis and treatments explained. To call sooner prior to next visit it any questions/concerns arise. 01/01/2025 Encounter for examination of blood pressure without abnormal findings (ICD-10 - Z01.30) Bri is a 69 year old female patient with a past medical history of osteopenia and vitamin D deficiency p # STool incontinence. Not all the time... MRI of lumbar spine w/o contrast. # Hyperlipidemia: Lipid panel reveals mild hyperlipidemia with LDL 127, down from 142. She continues to focus on nutrition and regular exercise. Encouraged fish oil supplementation. # Arthritis, Osteopenia, and Vitamin D deficiency: DEXA scan from 07/2022 does show osteopenia. She has begun taking calcium and vitamin D supplementation which will be continued. Vitamin D level is 43 today. She does have arthritis which mainly affects her MCP and knee joints bilaterally. Encouraged Ibuprofen use PRN for flare ups, discussed the significance of not using these daily but only for flare ups. Patient is in agreement and is also working on supportive measures including ice and stretching. # L hip pain. Suspect tronchanteric bursiti. Meloxicam 7.5 mg po daily x 1 month with no improvement. Refer to ortho # Cystocele: Undergoing urogynecology [facility] with cystocele repair Feb 2025 # Screening: UTD. June 2023 Colonoscopy Case discussed with collaborating physician Lucy Roberts who reviewed the assessment and plan. Chart, medications, labs, vital signs reviewed. Dictation was accomplished with the use of [employer] voice recognition software, prone to medical misidentifications and grammatical errors. This is unintentional and the practitioner does try to identify and correct these, but some could still be present. Please do not hesitate to contact practitioner for clarification. All questions answered to patients satisfaction. Patient verbalized understanding of diagnosis and treatments explained. To call sooner prior to next visit it any questions/concerns arise. 03/03/2025 Encounter for examination of blood pressure without abnormal findings (ICD-10 - Z01.30) Bri is a 69 year old female patient with a past medical history of osteopenia and vitamin D deficiency p # Tethered lumbar cord syndrome. This was noted on MRI done in January 2025. Patient has referral placed to neurosurgery # Hyperlipidemia: Lipid panel reveals mild hyperlipidemia with LDL 127, down from 142. She continues to focus on nutrition and regular exercise. Encouraged fish oil supplementation. # Arthritis, Osteopenia, and Vitamin D deficiency: DEXA scan from 07/2022 does show osteopenia. She has begun taking calcium and vitamin D supplementation which will be continued. Vitamin D level is 43 today. She does have arthritis which mainly affects her MCP and knee joints bilaterally. Encouraged Ibuprofen use PRN for flare ups, discussed the significance of not using these daily but only for flare ups. Patient is in agreement and is also working on supportive measures including ice and stretching. # Cystocele: Undergoing urogynecology [facility] with cystocele repair Feb 2025, 2 weeks postop with good healing. # Screening: UTD. June 2023 Colonoscopy Case discussed with collaborating physician Lucy Roberts who reviewed the assessment and plan. Chart, medications, labs, vital signs reviewed. Dictation was accomplished with the use of [employer] voice recognition software, prone to medical misidentifications and grammatical errors. This is unintentional and the practitioner does try to identify and correct these, but some could still be present. Please do not hesitate to contact practitioner for clarification. All questions answered to patients satisfaction. Patient verbalized understanding of diagnosis and treatments explained. To call sooner prior to next visit it any questions/concerns arise. 06/10/2024 Osteopenia of lumbar spine (ICD-10 - M85.88) Bri is a 69 year old female patient with a past medical history of osteopenia and vitamin D deficiency presenting for a Medicare wellness visit. # Hyperlipidemia: Lipid panel reveals mild hyperlipidemia with LDL 127, down from 142. She continues to focus on nutrition and regular exercise. Encouraged fish oil supplementation. # Arthritis, Osteopenia, and Vitamin D deficiency: DEXA scan from 07/2022 does show osteopenia. She has begun taking calcium and vitamin D supplementation which will be continued. Vitamin D level is 43 today. She does have arthritis which mainly affects her MCP and knee joints bilaterally. Encouraged Ibuprofen use PRN for flare ups, discussed the significance of not using these daily but only for flare ups. Patient is in agreement and is also working on supportive measures including ice and stretching. # L hip pain. Suspect tronchanteric bursiti. Meloxicam 7.5 mg po daily x 1 month. Consider refer to ortho for possible corticosteroid injection. # Cystocele: Followed by Urology. Consider referral to Pelvic PT. # Screening: UTD. June 2023 Colonoscopy # Vaccines: Given Rx for RSV/Pnuemonia vaccines. All other vaccines UTD Patient seen and examined. Comprehensive discussion was done on the following. 1. Nutrition: It is important to follow a healthy diet based on lots of vegetables and legumes and good fat. Avoid processed food and processed carbohydrates. Learn to prepare your own meals. Learn to read labels and avoid high fructose corn syrup, processed chemicals added to increase shelf life and preprepared meals. Avoid fast foods. Learn to eat slowly and plan meals for a week. Try to count calories and be mindful off daily calorie intake. Get into the habit of keeping an eye on your weight by using an appropriate scale. Learn to log exercise and discussed fitness Apps like Lumenz which can help keep log off calories taken versus calories burned. Local food should be preferred. Discussed Dirty Dozen Versus Clean Fifteen. Discussed healthy supplements like fish oil, Tumeric, Curcumin, Melatonin, Resveratrol, Probiotics, Vitamin-D, Alpha-Lipoic acid, Vitamin-D and coconut oil. 2. It is important to exercise regularly. Is a good habit to walk at least 30-45 minutes a day. Gentle weightlifting with standard precautions to protect the back. Finding activity like cycling or hiking and get into the habit of engaging in it. Stretching before and after the exercises important. It is also important to contact me if there are any problems like shortness of breath, chest pain, back pain and joint or muscle pain associated with the exercise. 3. Discussed age appropriate screening guidelines. Colonoscopy needs to start at age 50 with stool for occult blood as appropriate. There is a new test that can test for genetic abnormalities in the stool sample. This would not replace a colonoscopy but could be used as a screening tool for patients who do not want a colonoscopy. We discussed the importance of early detection of colon cancer. 4. Discussed current guidelines with respect to breast examination, mammogram and pap smear for early detection of breast and cervical cancer. Patient advised to follow up with these appointments. 5. Discussed safe driving and no use of smart phone while driving 6. Age-appropriate immunizations were discussed. A tetanus booster is needed every 10 years. Flu vaccine is recommended every year just before the start of the flu season. Shingles vaccine is recommended after age 50 but not all insurances cover it.Pneumonia vaccine is given after age 65 unless there are certain comorbidities for which it is started earlier. 7. Diagnostic labs were discussed. These could include CBC CMP and lipids with fasting blood glucose and insulin levels. Vitamin D and hemoglobin A1c testing might be appropriate. Follow up appointment in 6 months. WIll re-check lipid panel to trend values. Patient advised to call the office sooner if any questions arise. 06/10/2024 Depression screen (ICD-10 - Z13.31) Bri is a 69 year old female patient with a past medical history of osteopenia and vitamin D deficiency presenting for a Medicare wellness visit. # Hyperlipidemia: Lipid panel reveals mild hyperlipidemia with LDL 127, down from 142. She continues to focus on nutrition and regular exercise. Encouraged fish oil supplementation. # Arthritis, Osteopenia, and Vitamin D deficiency: DEXA scan from 07/2022 does show osteopenia. She has begun taking calcium and vitamin D supplementation which will be continued. Vitamin D level is 43 today. She does have arthritis which mainly affects her MCP and knee joints bilaterally. Encouraged Ibuprofen use PRN for flare ups, discussed the significance of not using these daily but only for flare ups. Patient is in agreement and is also working on supportive measures including ice and stretching. # L hip pain. Suspect tronchanteric bursiti. Meloxicam 7.5 mg po daily x 1 month. Consider refer to ortho for possible corticosteroid injection. # Cystocele: Followed by Urology. Consider referral to Pelvic PT. # Screening: UTD. June 2023 Colonoscopy # Vaccines: Given Rx for RSV/Pnuemonia vaccines. All other vaccines UTD Patient seen and examined. Comprehensive discussion was done on the following. 1. Nutrition: It is important to follow a healthy diet based on lots of vegetables and legumes and good fat. Avoid processed food and processed carbohydrates. Learn to prepare your own meals. Learn to read labels and avoid high fructose corn syrup, processed chemicals added to increase shelf life and preprepared meals. Avoid fast foods. Learn to eat slowly and plan meals for a week. Try to count calories and be mindful off daily calorie intake. Get into the habit of keeping an eye on your weight by using an appropriate scale. Learn to log exercise and discussed fitness Apps like Lumenz which can help keep log off calories taken versus calories burned. Local food should be preferred. Discussed Dirty Dozen Versus Clean Fifteen. Discussed healthy supplements like fish oil, Tumeric, Curcumin, Melatonin, Resveratrol, Probiotics, Vitamin-D, Alpha-Lipoic acid, Vitamin-D and coconut oil. 2. It is important to exercise regularly. Is a good habit to walk at least 30-45 minutes a day. Gentle weightlifting with standard precautions to protect the back. Finding activity like cycling or hiking and get into the habit of engaging in it. Stretching before and after the exercises important. It is also important to contact me if there are any problems like shortness of breath, chest pain, back pain and joint or muscle pain associated with the exercise. 3. Discussed age appropriate screening guidelines. Colonoscopy needs to start at age 50 with stool for occult blood as appropriate. There is a new test that can test for genetic abnormalities in the stool sample. This would not replace a colonoscopy but could be used as a screening tool for patients who do not want a colonoscopy. We discussed the importance of early detection of colon cancer. 4. Discussed current guidelines with respect to breast examination, mammogram and pap smear for early detection of breast and cervical cancer. Patient advised to follow up with these appointments. 5. Discussed safe driving and no use of smart phone while driving 6. Age-appropriate immunizations were discussed. A tetanus booster is needed every 10 years. Flu vaccine is recommended every year just before the start of the flu season. Shingles vaccine is recommended after age 50 but not all insurances cover it.Pneumonia vaccine is given after age 65 unless there are certain comorbidities for which it is started earlier. 7. Diagnostic labs were discussed. These could include CBC CMP and lipids with fasting blood glucose and insulin levels. Vitamin D and hemoglobin A1c testing might be appropriate. Follow up appointment in 6 months. WIll re-check lipid panel to trend values. Patient advised to call the office sooner if any questions arise. 06/10/2024 Encounter for screening for other disorder (ICD-10 - Z13.89) Bri is a 69 year old female patient with a past medical history of osteopenia and vitamin D deficiency presenting for a Medicare wellness visit. # Hyperlipidemia: Lipid panel reveals mild hyperlipidemia with LDL 127, down from 142. She continues to focus on nutrition and regular exercise. Encouraged fish oil supplementation. # Arthritis, Osteopenia, and Vitamin D deficiency: DEXA scan from 07/2022 does show osteopenia. She has begun taking calcium and vitamin D supplementation which will be continued. Vitamin D level is 43 today. She does have arthritis which mainly affects her MCP and knee joints bilaterally. Encouraged Ibuprofen use PRN for flare ups, discussed the significance of not using these daily but only for flare ups. Patient is in agreement and is also working on supportive measures including ice and stretching. # L hip pain. Suspect tronchanteric bursiti. Meloxicam 7.5 mg po daily x 1 month. Consider refer to ortho for possible corticosteroid injection. # Cystocele: Followed by Urology. Consider referral to Pelvic PT. # Screening: UTD. June 2023 Colonoscopy # Vaccines: Given Rx for RSV/Pnuemonia vaccines. All other vaccines UTD Patient seen and examined. Comprehensive discussion was done on the following. 1. Nutrition: It is important to follow a healthy diet based on lots of vegetables and legumes and good fat. Avoid processed food and processed carbohydrates. Learn to prepare your own meals. Learn to read labels and avoid high fructose corn syrup, processed chemicals added to increase shelf life and preprepared meals. Avoid fast foods. Learn to eat slowly and plan meals for a week. Try to count calories and be mindful off daily calorie intake. Get into the habit of keeping an eye on your weight by using an appropriate scale. Learn to log exercise and discussed fitness Apps like Lumenz which can help keep log off calories taken versus calories burned. Local food should be preferred. Discussed Dirty Dozen Versus Clean Fifteen. Discussed healthy supplements like fish oil, Tumeric, Curcumin, Melatonin, Resveratrol, Probiotics, Vitamin-D, Alpha-Lipoic acid, Vitamin-D and coconut oil. 2. It is important to exercise regularly. Is a good habit to walk at least 30-45 minutes a day. Gentle weightlifting with standard precautions to protect the back. Finding activity like cycling or hiking and get into the habit of engaging in it. Stretching before and after the exercises important. It is also important to contact me if there are any problems like shortness of breath, chest pain, back pain and joint or muscle pain associated with the exercise. 3. Discussed age appropriate screening guidelines. Colonoscopy needs to start at age 50 with stool for occult blood as appropriate. There is a new test that can test for genetic abnormalities in the stool sample. This would not replace a colonoscopy but could be used as a screening tool for patients who do not want a colonoscopy. We discussed the importance of early detection of colon cancer. 4. Discussed current guidelines with respect to breast examination, mammogram and pap smear for early detection of breast and cervical cancer. Patient advised to follow up with these appointments. 5. Discussed safe driving and no use of smart phone while driving 6. Age-appropriate immunizations were discussed. A tetanus booster is needed every 10 years. Flu vaccine is recommended every year just before the start of the flu season. Shingles vaccine is recommended after age 50 but not all insurances cover it.Pneumonia vaccine is given after age 65 unless there are certain comorbidities for which it is started earlier. 7. Diagnostic labs were discussed. These could include CBC CMP and lipids with fasting blood glucose and insulin levels. Vitamin D and hemoglobin A1c testing might be appropriate. Follow up appointment in 6 months. WIll re-check lipid panel to trend values. Patient advised to call the office sooner if any questions arise. 06/10/2024 Cystocele, midline (ICD-10 - N81.11) Bri is a 69 year old female patient with a past medical history of osteopenia and vitamin D deficiency presenting for a Medicare wellness visit. # Hyperlipidemia: Lipid panel reveals mild hyperlipidemia with LDL 127, down from 142. She continues to focus on nutrition and regular exercise. Encouraged fish oil supplementation. # Arthritis, Osteopenia, and Vitamin D deficiency: DEXA scan from 07/2022 does show osteopenia. She has begun taking calcium and vitamin D supplementation which will be continued. Vitamin D level is 43 today. She does have arthritis which mainly affects her MCP and knee joints bilaterally. Encouraged Ibuprofen use PRN for flare ups, discussed the significance of not using these daily but only for flare ups. Patient is in agreement and is also working on supportive measures including ice and stretching. # L hip pain. Suspect tronchanteric bursiti. Meloxicam 7.5 mg po daily x 1 month. Consider refer to ortho for possible corticosteroid injection. # Cystocele: Followed by Urology. Consider referral to Pelvic PT. # Screening: UTD. June 2023 Colonoscopy # Vaccines: Given Rx for RSV/Pnuemonia vaccines. All other vaccines UTD Patient seen and examined. Comprehensive discussion was done on the following. 1. Nutrition: It is important to follow a healthy diet based on lots of vegetables and legumes and good fat. Avoid processed food and processed carbohydrates. Learn to prepare your own meals. Learn to read labels and avoid high fructose corn syrup, processed chemicals added to increase shelf life and preprepared meals. Avoid fast foods. Learn to eat slowly and plan meals for a week. Try to count calories and be mindful off daily calorie intake. Get into the habit of keeping an eye on your weight by using an appropriate scale. Learn to log exercise and discussed fitness Apps like Lumenz which can help keep log off calories taken versus calories burned. Local food should be preferred. Discussed Dirty Dozen Versus Clean Fifteen. Discussed healthy supplements like fish oil, Tumeric, Curcumin, Melatonin, Resveratrol, Probiotics, Vitamin-D, Alpha-Lipoic acid, Vitamin-D and coconut oil. 2. It is important to exercise regularly. Is a good habit to walk at least 30-45 minutes a day. Gentle weightlifting with standard precautions to protect the back. Finding activity like cycling or hiking and get into the habit of engaging in it. Stretching before and after the exercises important. It is also important to contact me if there are any problems like shortness of breath, chest pain, back pain and joint or muscle pain associated with the exercise. 3. Discussed age appropriate screening guidelines. Colonoscopy needs to start at age 50 with stool for occult blood as appropriate. There is a new test that can test for genetic abnormalities in the stool sample. This would not replace a colonoscopy but could be used as a screening tool for patients who do not want a colonoscopy. We discussed the importance of early detection of colon cancer. 4. Discussed current guidelines with respect to breast examination, mammogram and pap smear for early detection of breast and cervical cancer. Patient advised to follow up with these appointments. 5. Discussed safe driving and no use of smart phone while driving 6. Age-appropriate immunizations were discussed. A tetanus booster is needed every 10 years. Flu vaccine is recommended every year just before the start of the flu season. Shingles vaccine is recommended after age 50 but not all insurances cover it.Pneumonia vaccine is given after age 65 unless there are certain comorbidities for which it is started earlier. 7. Diagnostic labs were discussed. These could include CBC CMP and lipids with fasting blood glucose and insulin levels. Vitamin D and hemoglobin A1c testing might be appropriate. Follow up appointment in 6 months. WIll re-check lipid panel to trend values. Patient advised to call the office sooner if any questions arise. 06/10/2024 Advance care planning (ICD-10 - Z71.89) Bri is a 69 year old female patient with a past medical history of osteopenia and vitamin D deficiency presenting for a Medicare wellness visit. # Hyperlipidemia: Lipid panel reveals mild hyperlipidemia with LDL 127, down from 142. She continues to focus on nutrition and regular exercise. Encouraged fish oil supplementation. # Arthritis, Osteopenia, and Vitamin D deficiency: DEXA scan from 07/2022 does show osteopenia. She has begun taking calcium and vitamin D supplementation which will be continued. Vitamin D level is 43 today. She does have arthritis which mainly affects her MCP and knee joints bilaterally. Encouraged Ibuprofen use PRN for flare ups, discussed the significance of not using these daily but only for flare ups. Patient is in agreement and is also working on supportive measures including ice and stretching. # L hip pain. Suspect tronchanteric bursiti. Meloxicam 7.5 mg po daily x 1 month. Consider refer to ortho for possible corticosteroid injection. # Cystocele: Followed by Urology. Consider referral to Pelvic PT. # Screening: UTD. June 2023 Colonoscopy # Vaccines: Given Rx for RSV/Pnuemonia vaccines. All other vaccines UTD Patient seen and examined. Comprehensive discussion was done on the following. 1. Nutrition: It is important to follow a healthy diet based on lots of vegetables and legumes and good fat. Avoid processed food and processed carbohydrates. Learn to prepare your own meals. Learn to read labels and avoid high fructose corn syrup, processed chemicals added to increase shelf life and preprepared meals. Avoid fast foods. Learn to eat slowly and plan meals for a week. Try to count calories and be mindful off daily calorie intake. Get into the habit of keeping an eye on your weight by using an appropriate scale. Learn to log exercise and discussed fitness Apps like Lumenz which can help keep log off calories taken versus calories burned. Local food should be preferred. Discussed Dirty Dozen Versus Clean Fifteen. Discussed healthy supplements like fish oil, Tumeric, Curcumin, Melatonin, Resveratrol, Probiotics, Vitamin-D, Alpha-Lipoic acid, Vitamin-D and coconut oil. 2. It is important to exercise regularly. Is a good habit to walk at least 30-45 minutes a day. Gentle weightlifting with standard precautions to protect the back. Finding activity like cycling or hiking and get into the habit of engaging in it. Stretching before and after the exercises important. It is also important to contact me if there are any problems like shortness of breath, chest pain, back pain and joint or muscle pain associated with the exercise. 3. Discussed age appropriate screening guidelines. Colonoscopy needs to start at age 50 with stool for occult blood as appropriate. There is a new test that can test for genetic abnormalities in the stool sample. This would not replace a colonoscopy but could be used as a screening tool for patients who do not want a colonoscopy. We discussed the importance of early detection of colon cancer. 4. Discussed current guidelines with respect to breast examination, mammogram and pap smear for early detection of breast and cervical cancer. Patient advised to follow up with these appointments. 5. Discussed safe driving and no use of smart phone while driving 6. Age-appropriate immunizations were discussed. A tetanus booster is needed every 10 years. Flu vaccine is recommended every year just before the start of the flu season. Shingles vaccine is recommended after age 50 but not all insurances cover it.Pneumonia vaccine is given after age 65 unless there are certain comorbidities for which it is started earlier. 7. Diagnostic labs were discussed. These could include CBC CMP and lipids with fasting blood glucose and insulin levels. Vitamin D and hemoglobin A1c testing might be appropriate. Follow up appointment in 6 months. WIll re-check lipid panel to trend values. Patient advised to call the office sooner if any questions arise. Plan Of Treatment Pending Test Test Name Order Date Bone Density 04/17/2022 Bone Density 11/05/2024 MRI : Lumbar without contrast 01/01/2025 25OH VITAMIN D 11/01/2020 CBC (COMPLETE BLOOD COUNT) 11/01/2020 COMPREHENSIVE METABOLIC PANEL 11/01/2020 HEMOGLOBIN A1C 11/01/2020 INSULIN, FREE 11/01/2020 LIPID PANEL 11/01/2020 T3, FREE 11/01/2020 T4, FREE 11/01/2020 TSH 11/01/2020 LIPID PANEL, STANDARD 04/17/2022 LIPID PANEL, STANDARD 10/03/2021 LIPID PANEL, STANDARD 11/08/2023 LIPID PANEL, STANDARD 08/15/2022 LIPID PANEL, STANDARD 04/20/2023 LIPID PANEL, STANDARD 03/03/2025 COMPREHENSIVE METABOLIC PANEL 11/08/2023 COMPREHENSIVE METABOLIC PANEL 08/15/2022 COMPREHENSIVE METABOLIC PANEL 04/17/2022 COMPREHENSIVE METABOLIC PANEL 10/03/2021 CBC (INCLUDES DIFF/PLT) 10/03/2021 CBC (INCLUDES DIFF/PLT) 08/15/2022 CBC (INCLUDES DIFF/PLT) 11/08/2023 CBC (INCLUDES DIFF/PLT) 03/03/2025 URINALYSIS, COMPLETE 11/08/2023 URINALYSIS, COMPLETE 03/03/2025 URINALYSIS, COMPLETE 08/15/2022 HEMOGLOBIN A1c 03/03/2025 HEMOGLOBIN A1c 11/08/2023 HEMOGLOBIN A1c 08/15/2022 HEMOGLOBIN A1c 10/03/2021 VITAMIN B12 11/08/2023 VITAMIN B12 03/03/2025 T4, FREE 11/08/2023 TSH 11/08/2023 TSH 08/15/2022 T3, FREE 11/08/2023 VITAMIN D,25-OH,TOTAL,IA 11/08/2023 VITAMIN D,25-OH,TOTAL,IA 10/03/2021 VITAMIN D,25-OH,TOTAL,IA 08/15/2022 VITAMIN D,25-OH,TOTAL,IA 03/03/2025 TSH+T3+Free T4+T3 Free 03/03/2025 Next Appt Details Provider Name:JOSE LAGUNAS, 06/25/2025 10:15:00 AM, [address], [place], [address], Insurance Providers Payer Name Payer Address Payer Phone Subscriber Number Group Number Insured Name Patient Relationship to Insured Coverage Start Date Coverage End Date Medicare Part B J14 [address] [place] [phone] [id number] Bri Flower Self - patient is the insured 2 [facility] [address] [place] [address] [id number] Bri Flower Self - patient is the insured Medical (General) History Medical History History ICD Code Vitamin D deficiency E55.9 Osteopenia of spine M85.88 Incomplete uterovaginal prolapse N81.2 Trochanteric bursitis of left hip M70.62 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
--- OUTSIDE RECORDS SUMMARY | 2025-03-27 10:56 | XMS_ITS | Clinical Summary ---
Author Organization [address] [place] [address] Address [facility] [place] [address] Phone Care Team Providers Care Be[employer] And Pulper Feeder Name Role Phone Rajendra Roberts MD Primary Care Provider [phone] Medications ciprofloxacin (CILOXAN) 0.3 % ophthalmic solution Days 1-2: place 1 drop in the eye every 2 hours. Days 3-7: place 1 drop in the eye every 4 hours 5 mL 10/15/2024 Active methocarbamoL (ROBAXIN) 500 mg tablet Take 1 tablet (500 mg total) by mouth 4 (four) times a day if needed for muscle spasms for up to 10 days. 40 tablet 12/07/2024 Active Encounters Date Type Department Care Team Description 02/23/2025 Telephone Neurosurgery [facility] [address] [facility] [address] [place] [address] Buffy Roque [place] 02/10/2025 6:09 PM EST - 02/10/2025 11:59 PM EST Hospital Encounter [facility] MRI [address] [place] [address] Unspecified urinary incontinence Discharge Disposition: Home or Self Care from Last 3 Months Immunizations Immunization Administration Dates Next Due Influenza trivalent, 0.5mL (Fluad) 65yo and olde r 01/28/2025 Social History Tobacco Use Types Packs/Day Years Used Date Smoking Tobacco: Never Assessed Comments Unknown Sex and Gender Information Value Date Recorded Sex Assigned at Not on file Legal Sex Female 11:20 AM EST Gender Identity Not on file Sexual Orientation Not on file Last Filed Vital Signs Vital Sign Reading Time Taken Comments Blood Pressure 104/76 02/03/2024 1:38 PM EDT Pulse 70 02/03/2024 1:38 PM EDT Temperature - - Respiratory Rate - - Oxygen Saturation - - Inhaled Oxygen Concentration - - Weight - - Height - - Body Mass Index - - Plan of Treatment Health Maintenance Due Date Last Done Comments Breast Cancer Screening 1955 DTaP,Tdap,and Td Vaccines (1 - Tdap) 02/13/1976 Falls Risk Assessment 03/07/2022 Hepatitis C Screening 03/07/2022 Social Influencers of Health Screening 03/07/2022 Medicare Annual Wellness Visit 04/17/2023 04/17/2022 Depression Screening 04/09/2024 COVID-19 Vaccine ( season) 2024 01/25/2024, 03/05/2021, 05/18/2020, Additional history exists Colorectal Cancer Screening: Colonoscopy 07/30/2028 Cholesterol Screening (Lipid Panel) 04/27/2029 04/27/2024 Osteoporosis Screening (Bone Density Screening) 11/14/2034 11/14/2024 Zoster Vaccines Completed 05/17/2021, 03/05/2021 Pneumococcal Vaccine: 50+ Years Completed 04/21/2023 RSV Immunization Adult Patients Completed 04/21/2023 Influenza Vaccine Completed 01/28/2025, , 02/28/2023 HIB Vaccines Aged Out No longer eligi ble based on patient's age to complete this topic HPV Vaccines Aged Out No longer eligi ble based on patient's age to complete this topic Hepatitis A Vaccines Aged Out No long er eligible based on patient's age to complete this topic Hepatitis B Vaccines Aged Out No long er eligible based on patient's age to complete this topic IPV Vaccines Aged Out No longer eligi ble based on patient's age to complete this topic MMR Vaccines Aged Out No longer eligi ble based on patient's age to complete this topic Meningococcal ACWY Vaccine Aged Out N o longer eligible based on patient's age to complete this topic Meningococcal B Vaccine Aged Out No l onger eligible based on patient's age to complete this topic RSV Immunization Patients Under 20 months Aged Out No longer eligible based on patient's age to complete this topic Varicella Vaccines Aged Out No longer eligible based on patient's age to complete this topic Procedures Procedure Name Priority Date/Time Associated Diagnosis Comments MR LUMBAR SPINE WO CONTRAST Routine 02/10/2025 7:00 PM EST Unspecified urinary incontinence BD BONE DENSITY DXA AXIAL SKELETON Routine 11/14/2024 10:35 AM EDT Encounter for screening for osteoporosis Screening for osteoporosis LIPID PANEL WITH REFLEX TO DIRECT LDL Routine 04/27/2024 10:15 AM EST Encounter for screening for lipoid disorders from Last 3 Months or Most Recently Relevant to Health Maintenance Results * MR Lumbar Spine wo Contrast (02/10/2025 7:00 PM EST) Anatomical Region Laterality Modality L-spine, Spine Magnetic Resonan ce 2025 3:11 AM EST Impressions 2025 10:05 AM EST Constellation of findings suspicious for tethered cord syndrome -------- FINAL REPORT -------- Dictated By: Kavitha Romero Dictated Date: 2025 03:11 ET Assigned Physician: Kavitha Romero Reviewed and Electronically Signed By: Kavitha Romero Signed Date: 2025 10:05 ET Workstation ID: [id number] Transcribed By: Self Edit Transcribed Date: 2025 03:19 ET Narrative 2025 10:05 AM EST INDICATION: Stool incontinence COMPARISON: None TECHNIQUE: Multiplanar, multisequence MRI was performed of the lumbar spine without IV contrast. FINDINGS: Study assumes 5 lumbar type vertebral bodies. Stepwise grade 1 anterolisthesis of L3 on L4 and L4 on L5. Conus terminates at L4. Bone marrow and cord signal is unremarkable. Disc desiccation at L3-L4 and L4-L5. Small multilevel anterior marginal osteophytes. The spinal canal is widened and patulous in appearance which may represent dural ectasia. Specific findings are seen at the following levels: T12-L1:No significant spinal canal stenosis or neural foraminal narrowing L1-L2:No significant spinal canal stenosis or neural foraminal narrowing L2-L3:Mild disc bulge with facet arthropathy without significant spinal canal [...] joints, paraspinal muscles and retroperitoneum are unremarkable. Procedure Note Kavitha Romero MD - 2025 INDICATION: Stool incontinence COMPARISON: None TECHNIQUE: Multiplanar, multisequence MRI was performed of the lumbarspine without IV contrast. FINDINGS: Study assumes 5 lumbar type vertebral bodies. Stepwise grade 1anterolisthesis of L3 on L4 and L4 on L5. Conus terminates at L4. Bonemarrow and cord signal is unremarkable. Disc desiccation at L3-L4 andL4-L5. Small multilevel anterior marginal osteophytes. The spinal canalis widened and patulous in appearance which may represent dural ectasia.Specific findings are seen at the following levels: T12-L1:No significant spinal canal stenosis or neural foraminalnarrowing L1-L2:No significant spinal canal stenosis or neural foraminal narrowing L2-L3:Mild disc bulge with facet arthropathy without significant spinalcanal stenosis or neural foraminal narrowing L3-L4:Uncovering of the disc with ligamentum flavum infolding and facetarthropathy which effaces the ventral thecal sac and results in mildspinal canal stenosis. No neural foraminal narrowing. L4-L5:Uncovering of the disc with ligamentum flavum infolding and facetarthropathy with fluid in both facet joints which results in moderatespinal canal stenosis and mild bilateral neural foraminal narrowing L5-S1:No significant spinal canal stenosis or neural foraminal narrowing.Facet arthropathy. Miscellaneous: Visualized SI joints, paraspinal muscles andretroperitoneum are unremarkable. IMPRESSION: Constellation of findings suspicious for tethered cord syndrome -------- FINAL REPORT -------- Dictated By: Kavitha Romero Dictated Date: 2025 03:11 ET Assigned Physician: Kavitha Romero Reviewed and Electronically Signed By: Kavitha Romero Signed Date: 2025 10:05 ET Workstation ID: [id number] Transcribed By: Self Edit Transcribed Date: 2025 03:19 ET us Mitra HUNTER IMG MRI PROCEDURES Final Result * BD Bone Density DXA Axial Skeleton (11/14/2024 10:35 AM EDT) Anatomical Region Laterality Modality Wrist, Hip, L-spine Bone Densito metry 11/17/2024 9:55 AM EDT Impressions 11/17/2024 9:56 AM EDT Osteopenia by WHO criteria. This patient has a 20% risk of major osteoporotic fracture and a 4.3% risk of hip fracture over the next 10 years. (World Health Organization Fracture Risk Assessment) [facility] Department of Internal Medicine recommends using National Osteoporosis Foundation (NOF) guidelines in treatment decisions related to osteoporosis. NOF guidelines suggest considering treatment for postmenopausal women and men aged 50 or older presenting with the following: History of hip or vertebral fracture. T-score = -2.5 (DXA) at the femoral neck, total hip, or spine, after appropriate evaluation to exclude secondary causes. Low bone mass (T-score between -1.0 and -2.5 at the femoral [...] alternative screening schedule based on tejas Henderson., [facility] April 27, 2011 for patients with osteopenia (based on hip BMD T-score) is as follows: * advanced osteopenia (T scores -2.00 to -2.49), BMD testing every year * moderate osteopenia (T scores -1.50 to -1.99), BMD testing every 5 years mild osteopenia or normal BMD (T scores -1.50 and higher), BMD testing every 15 years -------- FINAL REPORT -------- Dictated By: Aleta Kwan Dictated Date: 11/17/2024 09:55 ET Assigned Physician: Aleta Kwan Reviewed and Electronically Signed By: Aleta Kwan Signed Date: 11/17/2024 09:56 ET Workstation ID: [id number] Transcribed By: Self Edit Transcribed Date: 11/17/2024 09:55 ET Narrative 11/17/2024 9:56 AM EDT BONE DENSITY SCAN (DEXA): FINDINGS: Lumbar Spine T-score is -2.4. (SD relative to 20-29 y/o adult) Z-score is -0.5. (SD relative to age matched peers) This is considered osteopenia by WHO criteria. Left Hip T-score is -2.4. Z-score is -0.7. This is considered osteopenia by WHO criteria. Comparison exam(s): None. Procedure Note Aleta Kwan MD - 11/17/2024 BONE DENSITY SCAN (DEXA): FINDINGS: Lumbar Spine T-score is -2.4. (SD relative to 20-29 y/o adult) Z-score is -0.5. (SD relative to age matched peers) This is considered osteopenia by WHO criteria. Left Hip T-score is -2.4. Z-score is -0.7. This is considered osteopenia by WHO criteria. Comparison exam(s): None. IMPRESSION: Osteopenia by WHO criteria. This patient has a 20% risk of majorosteoporotic fracture and a 4.3% risk of hip fracture over the next 10years. (World Health Organization Fracture Risk Assessment) [facility] Department of Internal Medicine recommendsusing National Osteoporosis Foundation (NOF) guidelines in treatmentdecisions related to osteoporosis. NOF guidelines suggest consideringtreatment for postmenopausal women and men aged 50 or older presentingwith the following: History of hip or vertebral fracture. T-score = -2.5 (DXA) at the femoral neck, total hip, or spine, afterappropriate evaluation to exclude secondary causes. Low bone mass (T-score between -1.0 and -2.5 at the femoral neck or spine)AND a 10-year probability of a hip fracture = 3% OR a 10-year probabilityof a major osteoporosis-related fracture = 20% based on the [place]-adapted WHOalgorithm Please note that all treatment decisions require clinical judgment andconsideration of individual patient factors, including patientpreferences, co-morbidities, previous drug use, risk factors not capturedin the FRAX model (e.g., frailty, falls, vitamin D deficiency, increasedbone turnover, interval significant decline in bone density) and possibleunder- or over-estimation of fracture risk by FRAX. Optional alternative screening schedule based on tejas Henderson., [facility] for patients with osteopenia (based on hip BMD T-score)is as follows: * advanced osteopenia (T scores -2.00 to -2.49), BMD testing every year * moderate osteopenia (T scores -1.50 to -1.99), BMD testing every 5years mild osteopenia or normal BMD (T scores -1.50 and higher), BMD testingevery 15 years -------- FINAL REPORT -------- Dictated By: Aleta Kwan Dictated Date: 11/17/2024 09:55 ET Assigned Physician: Aleta Kwan Reviewed and Electronically Signed By: Aleta Kwan Signed Date: 11/17/2024 09:56 ET Workstation ID: [id number] Transcribed By: Self Edit Transcribed Date: 11/17/2024 09:55 ET Mitra HUNTER [facility] DXA PROCEDURES Final Result * (ABNORMAL) Lipid panel with reflex to direct LDL (04/27/2024 10:15 AM EST) [facility] Cholesterol 205(H) 0 - 200 mg/dL LAB CHEMISTRY METHOD 04/27/2024 8:50 PM EST [facility] Triglycerides 78 0 - 150 mg/dL LAB CHEMISTRY METHOD 04/27/2024 8:50 PM [facility] HDL 62 >=40 mg/dL LAB CHEMISTRY METHOD 04/27/2024 8:50 PM [facility] LDL Calculated 127(H) 0 - 100 mg/dL LAB CHEMISTRY METHOD 04/27/2024 8:50 PM EST [facility] VLDL Cholesterol Dwight 15.6 mg/dL LAB CHEMISTRY METHOD 04/27/2024 8:50 PM [facility] Non HDL Chol. (LDL+VLDL) 143 <145 mg/dL LAB CHEMISTRY METHOD 04/27/2024 8:50 PM [facility] Chol/HDL Ratio 3.3 0.0 - 4.4 LAB CHEMISTRY METHOD 04/27/2024 8:50 PM [facility] Blood Venous blood specimen / Unknown Venipuncture / Unknown 04/27/2024 10:15 AM EST 04/27/2024 10:15 AM EST Mitra HUNTER LAB BLOOD ORDERABLES Final Resul t [facility] [address] [place] [address], from Last 3 Months or Most Recently Relevant to Health Maintenance Insurance MEDICARE [facility] [address] [place] [address] Care Teams [employer] Pul[employer] Feeder Relationship Specialty Start Date End Date Rajendra Roberts MD [address] [place] [address] [place] [id number] PCP - General 08/16/22
== END 2025-03-27 11:10 | disposition home or self-care (01) ==
LOC: HO.HNS 09:53
PROVIDERS: PCP Physician Assistant Medical; Referring Provider Physician Assistant Medical; Visit Provider Physician Assistant
DX: Q06.8 Other specified congenital malformations of spinal cord (principal)
CPT/HCPCS: 99204

== ENCOUNTER → 2025-03-27 09:52 | Outpatient (BNVA) | payer MEDICARE, OTHER, SELFPAY | PROVIDERS: PCP Physician Assistant Medical; Referring Provider Physician Assistant Medical; Visit Provider Physician Assistant | DX: Q06.8 Other specified congenital malformations of spinal cord (principal) | CPT/HCPCS: 99202 ==